=== PATIENT | female | born 1975 | race Hispanic/Latino ===

== ENCOUNTER 2017-12-05 10:59 | Emergency (ER) | payer OTHER, SELFPAY ==
[2017-12-05 11:38] LABS: Bilirubin Negative (Negative); Blood, Urine Small (Negative); Clarity CLEAR (Clear); Glucose, Urine (Dipstick) Negative (Negative); Leukocyte Negative (Negative); Nitrite Negative (Negative); Protein, Urine (Dipstick) Negative (Neg-Trace); Specific Gravity, Urine 1.013 (1.002-1.036); Urobilinogen 0.2 mg/dL (0.2-1.0); pH, Urine 7.5 (5.0-9.0)
[2017-12-05 11:39] LABS: Hemoglobin 14.2 g/dL (12.0-16.0); Mean Corpuscular HGB CONC 33.5 g/dL (32.0-36.0); Mean Corpuscular Hemoglobin 33.6 pg (27.0-31.0); Mean Platelet Volume 7.7 fL (7.4-10.4); Platelet Count 248 thou/uL (130-400); RBC Distribution Width 12.6 % (11.5-14.5); Red Blood Cell (RBC) Count 4.22 mill/uL (4.20-5.40); White Blood Cell (WBC) Count 16.2 thou/uL (4.8-10.8)
[2017-12-05 11:43] LABS: Bacteria/HPF None Seen HPF (None Seen); Hyaline Casts/LPF 0-3 HYALINE CAST LPF (0-3 Hyaline); Pathc Cast-AUWi Flag 0.29 (0-2.49); Squamous Epithelial None Seen HPF (0-3); WBC/HPF None Seen HPF (0-3)
--- NOTE | 2017-12-05 12:03 | ULT ---
RIGHT UPPER QUADRANT ULTRASOUND: Date: 12/05/17 HISTORY: Right upper quadrant abdominal pain. TECHNIQUE: Multiplanar Graf scale and color Doppler images were obtained in a right upper quadrant abdominal ult rasound. FINDINGS: The liver demonstrates increased echogenicity consistent with fatty infiltration. There is focal fatt y sparing adjacent to the gallbladder. There is no intrahepatic ductal dilatation or focal liver mass es. The gallbladder is normal without stones, sludge, gallbladder wall thickening, or pericholecystic fluid. The common bile duct is normal, measuring 5.0 mm. The visualized portions of the pancreas are unremarkable. The right kidney is normal in echogenicity without hydronephrosis or calculus and measures 9.6 cm in length. IMPRESSION: Fatty liver. POS: [facility]
[2017-12-05 12:04] LABS: Band 12 % (5-11); Lymphocytes 17 % (21-51); MDiff Complete? YES; Neutrophil 70 % (42-75); RBC Morphology Normal; Reactive Lymphocytes 1 % (0-10)
[2017-12-05 12:21] LABS: Chloride 108 mmol/L (98-107); Potassium 4.3 mmol/L (3.5-5.1); Sodium 136 mmol/L (136-145)
[2017-12-05 12:22] LABS: Globulin 3.3 g/dL (2.4-3.5); Glucose 88 mg/dL (70-105); Protein, Total 7.3 g/dL (6.0-8.3)
[2017-12-05 12:24] LABS: Anion Gap 11 mmol/L (10-20); Bilirubin, Total 0.4 mg/dL (0.2-1.2); Carbon Dioxide 21 mmol/L (22-29)
[2017-12-05 12:25] LABS: Alkaline Phosphatase 124 U/L (40-150)
[2017-12-05 12:26] LABS: BUN (Urea Nitrogen) 13 mg/dL (7.0-18.7); Calc. Creatinine Clearance 0 mL/min (70-130); Estimated GFR-MDRD 88
[2017-12-05 12:27] LABS: AST (SGOT) 26 U/L (5-34)
[2017-12-05 12:28] LABS: ALT (SGPT) 18 U/L (8-55); Lipase 19 U/L (8-78)
--- NOTE | 2017-12-05 12:59 | CT ---
ABDOMEN CT WITHOUT CONTRAST: PELVIS CT WITHOUT CONTRAST: HISTORY: Right-sided pain. Increased white blood cell count. Right upper quadrant pain with radiation to the back. COMPARISON: 08/13/2008 TECHNIQUE: Abdomen and pelvis CT is performed without IV or oral contrast, utilizing renal stone protocol. Deni nal reformatted images are submitted for interpretation. FINDINGS: ABDOMEN: The lung bases are clear. Heart size is normal. No pericardial effusion. The descending thoracic aorta and abdominal aorta have a normal caliber. No periaortic fat stranding. The gallblad loy is unremarkable. Limited evaluation of the solid organs by lack of IV contrast. Focal fatty inf iltration of the liver near the falciform ligament is noted. The solid organs are grossly unremarkab le. No gastrohepatic, retrocrural, or periportal lymphadenopathy. Nonspecific right lower quadrant lymph nodes, similar to the prior examination. No definite lymphadenopathy in the mesentery. No carlos e air or free fluid. No obvious masses. Limited evaluation of the alimentary canal due to lack of o ral contrast. The gastric mucosa, duodenum, and small bowel loops are grossly unremarkable. The ile ocecal junction is normal. There appears to be a previous appendectomy. Scattered fecal material in a nondistended, nondilated colon. Occasional diverticulosis. No evidence of diverticulitis. Bilat erally, no hydronephrosis, nephrolithiasis, or perinephric fat stranding. Bilateral ureters have a n ormal caliber. No hydroureter, periureteral fat stranding, or ureterolithiasis. PELVIS: The uterus is surgically absent. No pelvic mass, lymphadenopathy, free air, or free fluid. The urinary bladder is unremarkable. There are no bladder calculi. No lytic or blastic lesions in the osseous structures. Interval increase in size in what is presumed to be a bone island at the L3 vertebral body level. IMPRESSION: No acute abnormality in the abdomen or pelvis. POS: [facility]
== END 2017-12-05 14:40 | disposition home or self-care (01) ==
LOC: ERS 10:59
DX: R10.11 Right upper quadrant pain (principal); F17.210 Nicotine dependence, cigarettes, uncomplicated
CPT/HCPCS: 36416; 74176; 76705; 80053; 81003; 81015; 83690; 85025